=== PATIENT | male | born 1995 | race African-American/Black ===

== ENCOUNTER 2023-12-17 13:58 | Emergency (ER) | payer MEDICAID ==
[2023-12-17 15:34] VITALS: BP 100/64; PULSE 70; RESP 18; TEMP 97.9; O2SAT 98
[2023-12-17] MEDS ORDERED: LIDO5DIS21 TOP (16:12)
[2023-12-17] MEDS ORDERED: GUAI200T6 PO (16:12)
[2023-12-17] MEDS ORDERED: PRED20TA2 PO (16:12)
[2023-12-17] MEDS ORDERED: PROM1SOL4 PO (16:12)
[2023-12-17] MEDS ORDERED: AZIT-43 PO (16:12)
[2023-12-17] MEDS ORDERED: BECL40AE11 IN (16:12)
[2023-12-17] MEDS ORDERED: METH-1181 PO (16:12)
[2023-12-17] MEDS ORDERED: BENZ100C97 PO (16:12)
[2023-12-17] MEDS: KETOROLAC TROMETH 30 MG/ML 1ML VIAL IM ONE (16:32)
== END 2023-12-17 16:39 | disposition home or self-care (01) ==
LOC: ER 13:58
DX: J98.01 Acute bronchospasm (principal); M54.9 Dorsalgia, unspecified
CPT/HCPCS: 71046; 96372; 99283; J1885

== ENCOUNTER 2024-03-14 07:40 | Emergency (ER) | payer MEDICAID ==
[~2024-03-14] VITALS: Ht 167.6 cm; Wt 81.8 kg
[~2024-03-14 07:40] MED LIST: AZIT-43 PO; BECL40AE11 IN; BENZ100C97 PO; GUAI200T6 PO; LIDO5DIS21 TOP; METH-1181 PO; PRED20TA2 PO; PROM1SOL4 PO
--- NOTE | 2024-03-14 07:55 | ED.PDOC ---
History of Present Illness HPI Comments 28-year-old male with PMHx COPD, Asthma presents with a chief complaint of SOB x 1 week with associated cough and chest discomfort. Patient states that his pain is worse upon breathing deeply. Patient reports that he has sick contacts at home and has been out of his albuterol inhaler. Patient reports that his cough is productive with brown-yellowish sputum. EMS reports that all vital signs were stable, 100% on room air, no supplemental oxygen needed. No other symptoms or modifying factors present at this time. Chief Complaint: Flu like Time Seen by MD: 07:42 Reviewed Notes: Medications, Allergies Allergies: Coded Allergies: NO KNOWN ALLERGIES (Unverified , 12/17/23) Home Meds Active Scripts Guaifenesin (Guaifenesin) 200 Mg Tab, 200 MG PO BID for 10 Days, #20 TAB 0 Refills Prov:STU THOMAS NP 12/17/23 Lidocaine (LIDODERM 5% TOPICAL PATCH) 1 Patch Ph, 1 PATCH TOP DAILY for 30 Days, #30 PATCH 0 Refills Prov:STU THOMAS NP 12/17/23 Methocarbamol (Methocarbamol) 500 Mg Tab, 500 MG PO Q6HP PRN for 14 Days, #56 TAB 0 Refills Prov:STU THOMAS NP 12/17/23 Benzonatate (Benzonatate) 100 Mg Cap, 1 CAP PO TID for 10 Days, #30 CAP 0 Refi lls Prov:STU THOMAS NP 12/17/23 Prednisone (Prednisone) 20 Mg Tab, 40 MG PO DAILY for 5 Days, #10 TAB 0 Refills Prov:STU THOMAS NP 12/17/23 Beclomethasone Dipropionate (Qvar Redihaler) 40 Mcg/Act Aer, 40 MCG IN DAILY for 30 Days, #1 AER 0 Refills Prov:STU THOMAS NP 12/17/23 Azithromycin (Azithromycin) 250 Mg Tab, 250 MG PO DAILY MDD 500 for 5 Days, #6 TAB 0 Refills 2 TABLETS ORALLY ON DAY ONE, THEN 1 TABLET ORALLY DAILY FOR 4 DAYS Prov:STU THOMAS NP 12/17/23 Promethazine-Dm (Promethazine Dm 6.25-15 mg/5Ml) 1 Gloria Gloria, 5 ML PO TIDPRN PRN for 10 Days, #150 ML 0 Refills Prov:STU THOMAS NICA 12/17/23 Information Source: Patient, Emergency Med Personnel Mode of Arrival: EMS Severity: Moderate Timing: Days Duration: Since onset Prehospital treatment: None Past Medical History PAST MEDICAL HISTORY: Asthma, COPD Surgical History: Denies all surgeries Family History Family History: Reviewed,noncontributory to illness Social History Smoker: Non-Smoker Alcohol: Denies ETOH Use Drugs: Denies Drug Use Constitutional: denies: chills, diaphoresis, fatigue, fever, malaise, sweats, weakness, others EENTM: denies: blurred vision, double vision, ear bleeding, ear discharge, ear drainage, ear pain, ear ringing, eye pain, eye redness, hearing loss, mouth pain, mouth swelling, nasal discharge, nose bleeding, nose congestion, nose pain, photophobia, tearing, throat pain, throat swelling, voice changes, others Respiratory: reports: cough, shortness of breath; denies: hemoptysis, orthopnea, SOB at rest, SOB with excertion, stridor, wheezing, others Cardiovascular: reports: chest pain; denies: dizzy spells, diaphoresis, Dyspnea on exertion, edema, irregular heart beat, left arm pain, lightheadedness, palpitations, PND, syncope, others Gastrointestinal: denies: abdomen distended, abdominal pain, blood streaked bowels, constipated, diarrhea, dysphagia, difficulty swallowing, hematemesis, melena, nausea, poor appetite, poor fluid intake, rectal bleeding, rectal pain, vomiting, others Genitourinary: denies: burning, dysuria, flank pain, frequency, hematuria, incontinence, penile discharge, penile sore, pain, testicle pain, testicle swelling, urgency, others Neurological: denies: dizziness, fainting, headache, left sided numbness, left sided weakness, numbness, paresthesia, pre-existing deficit, right sided numbness, right sided weakness, seizure, speech problems, tingling, tremors, weakness, others Musculoskeletal: denies: back pain, gout, joint pain, joint swelling, muscle pain, muscle stiffness, neck pain, others Integumetry: denies: bruises, change in color, change in hair/nails, dryness, laceration, lesions, lumps, rash, wounds, others Allergic/Immunocompromised: denies: Difficulty Healing, Frequent Infections, Hives, Itching, others Hematologic/Lymphatic: denies: anemia, blood clots, easy bleeding, easy bruising, swollen glands, others Endocrine: denies: excessive hunger, excessive sweating, excessive thirst, excessive urination, flushing, intolerance to cold, intolerance to heat, unexplained weight gain, unexplained weight loss, others Psychiatric: denies: anxiety, bipolar disorder, depression, hopeless, panic disorder, schizophrenia, sleepless, suicidal, others All Other Systems: Reviewed and Negative Physical Exam General Appearance: Moderate Distress, Obese HEENT: Normal ENT Inspection, Pharynx Normal, TMs Normal Neck: Full Range of Motion, Non-Tender, Normal, Normal Inspection Respiratory: Chest Non-Tender, Lungs Clear, No Accessory Muscle Use, No Respiratory Distress, Normal Breath Sounds Cardiovascular: No Edema, No JVD, No Murmur, No Gallop, Normal Peripheral Pulses, Regular Rate/Rhythm Breast Exam: Deferred Gastrointestinal: No Organomegaly, Non Tender, No Pulsatile Mass, Normal Bowel Sounds, Soft Genitalia: Deferred Pelvic: Deferred Rectal: Deferred Extremities: No calf tenderness, Normal capillary refill, Normal inspection, Normal range of motion, Non-tender, No pedal edema Musculoskeletal : Apperance: Normal Neurologic: Alert, county program technician II-XII nml as Tested, No Motor Deficits, Normal Affect, Normal Mood, No Sensory Deficits Cerebellar Function: Normal Reflexes: Normal Skin: Dry, Normal Color, Warm Lymphatic: No Adenopathy Was a procedure done? Was a procedure done?: No EKG EKG : Pulse Rate (adult): 80 [place]: Normal Cardiac Rhythm: NSR Block: None Hypertrophy: None ST: Normal Differential Dx Considerations may include: Influenza, COVID, pneumonia, viral pneumonia, bronchitis, URI, COPD exacerbation X-Ray, Labs, Meds, VS Vital Signs Date Time Temp Pulse Resp B/P (MAP) Pulse Ox O2 Delivery O2 Flow Rate FiO2 03/14/24 08:11 18 98 Room Air* 0 21 03/14/24 07:55 80 03/14/24 07:49 80 03/14/24 07:45 Room Air* 0 21 03/14/24 07:42 98.3 80 18 116/75 (89) 100 Current Medications Medications (Trade) Dose Ordered Sig/Claribel Route Start Time Stop Time Status Last Admin Albuterol (Ventolin Medneb) 2.5 mg ONCE ONCE NEB 03/14/24 08:00 03/14/24 08:01 DC 03/14/24 08:11 PATIENT: RIMMA ZAFAR: [id number]: [id number] : 1995 LOC: ER ROOM / BED: / AGE / SEX: 28 / M ADM STATUS: REG ER SERVICE 0750 ORDERING PHYSICIAN: AMANDA TIERNEY MD PROCEDURE(s): CXR2 - CHEST TWO VIEWS ROUTINE REASON: sob ORDER NUMBER(s): [id number], ACCESSION NUMBER(s): [id number] CHEST RADIOGRAPH Indication: sob Technique: Frontal and lateral view of the chest was obtained Comparison: XY CHEST TWO VIEWS ROUTINE on DOS: 12/17/23 FINDINGS: Lines and Tubes: None Lungs: Mild increased interstitial prominence. Pleura: No effusion. No pneumothorax. Cardiomediastinal contours: Unremarkable Bones: Unremarkable IMPRESSION: Possible viral pneumonitis ATED BY: SHASHI OLEA MD DICTATED DATE/TIME: 03/14/24854 SIGNED BY: SHASHI OLEA MD SIGNED DATE/TIME: 03/14/24854 28-year-old male presents here with difficulty breathing. I have given albuterol in the ER and clinically he is feeling much better. Patient was saturating well. Chest x-ray is consistent with possible viral pneumonitis. Advised the patient of this. I have discharged the patient with albuterol inhaler. EKG has been done which is unremarkable. Advised patient to follow up with PCP in 2-3 days and return to the ER if symptoms worsen or persist. Time of 1ST Reevaluation: 08:12 Reevaluation 1ST: Unchanged Patient Education/Counseling: Diagnosis, Treatment, Prognosis Family Education/Counseling: Diagnosis, Treatment, Prognosis Departure 1 Departure Time of Disposition: 09:42 Impression: Primary Impression: Viral pneumonitis Additional Impression: SOB (shortness of breath) Disposition: 01 HOME / SELF CARE / HOMELESS Condition: Fair Written Prescriptions Follow up with the primary care physician in 2-3 days. Return to the ER if symptoms worsen or persist. e-Prescriptions Albuterol Sulfate (VENTOLIN MDI) 90 Mcg Ih 90 MCG IN Q4HPRN PRN, #1 INH Prov: AMANDA TIERNEY MD 03/14/24 Discharged With: Self Critical Care Note Critical Care Time?: No Stability Stability form required: No Heart Score Heart Score: Heart Score Response (Comments) Value History Slightly Suspicious 0 EKG Normal 0 Age <45 0 Risk Factors 1 or 2 risk factors 1 Troponin N/A 0 Total 1 I personally scribed for AMANDA TIERNEY MD ([email or web address]) on 03/14/24 at 07:55. Electronically submitted by Darrion Murdock ([email or web address]). I personally scribed for AMANDA TIERNEY MD ([email or web address]) on 03/14/24 at 09:01. Electronically submitted by Darrion Murdock ([email or web address]). AMANDA TIERNEY MD Mar 14, 2024 07:55
--- NOTE | 2024-03-14 08:10 | ECG ---
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
[2024-03-14] MEDS: ALBUTEROL SULF 2.5 MG/0.5ML(0.5%) NEB SOLN NEB ONE (08:11)
--- NOTE | 2024-03-14 09:00 | DVH ---
CHEST RADIOGRAPH Indication: sob Technique: Frontal and lateral view of the chest was obtained Comparison: XY CHEST TWO VIEWS ROUTINE on DOS: 12/17/23 FINDINGS: Lines and Tubes: None Lungs: Mild increased interstitial prominence. Pleura: No effusion. No pneumothorax. Cardiomediastinal contours: Unremarkable Bones: Unremarkable IMPRESSION: Possible viral pneumonitis
[2024-03-14] MEDS ORDERED: ALBUAER3 IN (09:03)
[2024-03-14 09:23] VITALS: BP 109/79; PULSE 99; RESP 16; TEMP 98.2; O2SAT 98
== END 2024-03-14 09:23 | disposition home or self-care (01) ==
LOC: ER 07:40 → EDUNIT# 07:40 → EDBD 07:40 → ER 09:23
DX: Z79.899 Other long term (current) drug therapy (principal); R06.02 Shortness of breath; B97.89 Other viral agents as the cause of diseases classified elsewhere; J44.89 Other specified chronic obstructive pulmonary disease; J45.909 Unspecified asthma, uncomplicated
CPT/HCPCS: 71046; 93005; 94640

== ENCOUNTER 2024-03-24 01:07 | Emergency (ER) | payer MEDICAID ==
[~2024-03-24] VITALS: Ht 165.1 cm; Wt 78.4 kg
[~2024-03-24 01:07] MED LIST changes: +ALBUAER3 IN
--- NOTE | 2024-03-24 01:25 | ED.PDOC ---
SOB-HPI HPI Comments HPI: Poor Historian. 28-year-old male presents to emergency department for persistent nonspecific dry cough. He said every time he coughs he gets ribcage pain and headache. Patient went to an outside facility and was prescribed medication for his history of asthma/COPD. Patient came again six days ago to this facility he says and was prescribed additional medications. Patient states compliance with these medications. Patient states he still has this persistent cough. Patient has been released from shelter about three months ago. Patient is already on an inhaler and acromion prednisone smells like marijuana Vitals: temperature of 98.1F, pulse rate of 90, respiratory rate of 18, bloood pressure of 118/64, SpO2 of 96%RA PMHx: anxiety and depression w/o medication use, assthma, bronchitis, COPD PSHx: denies Social Hx: marijuana and nicotine vape use REVIEW OF SYSTEMS: CONSTITUTIONAL: Denies acute: fever, diaphoresis, chills, generalized weakness. HEAD: Denies acute: headache, photophobia Eyes: Denies acute: Double vision, vision loss, eye pain, eye discharge. EARS: Denies acute: tinnitus, hearing loss, ear discharge, ear pain, THROAT: Denies acute: sore throat, swelling, difficulty swallowing , pain with swallowing, change in voice. NECK: Denies acute: neck pain, neck swelling, stiff neck. HEART: Denies acute : chest pain, palpitations, LUNGS: Denies acute: wheezing, hemoptysis ABDOMEN: Denies acute: abdominal pain, Nausea, Vomiting, diarrhea, melena , hematemesis, hematochezia SKIN: Denies acute: rash, redness, lesions, itchiness. EXTREMITIES: Denies acute: calf pain, numbness, tingling, weakness, denies pain in extremity. Denies acute: Low back pain. Neuro: Denies acute: focal neurological deficit, motor or sensory focal neurological deficit, tremors, seizure like activity, confusion, dizziness, change in mental status, loss of bowel or bladder function, cauda equina like symptoms. : Denies acute: dysuria, hematuria, flank pain, increase in urinary frequency. PSYCH: Denies acute: hallucination, suicidal ideation, homicidal ideation. PHYSICAL EXAM: General: no acute distress, awake and alert. Head: normocephalic, atraumatic. Neck: supple, trachea is midline, no swelling. Throat: Normal phonation. Eyes:, no erythema, no purulent discharge, no proptosis, no icterus. Heart: regular rate, regular rhythm, no significant murmur appreciated. Lungs: no apparent respiratory distress, Able to speak in full sentences. Slight bilateral wheezing, no rhonchi, no crackles. No stridors Abdomen: non tender to palpation, non distended, soft, no guarding, no rebound, + bowel sounds. Neuro: Awake, Alert, oriented to name, self, situation, follows commands GCS=15. Speech is normal. Skin: no petechia, no purpura, no cyanosis, non-pale, not jaundice. Lower extremities: --no - Pitting edema no deformity, no focal swelling, no calf TTP. Makes eye contact. moves all four extremities. Face: no apparent facial droop. Ambulating in the ED independently. No nuchal rigidity, Kernig's sign, Brudzinski's sign, no meningeal signs. Chief Complaint: Shortness of Breath Time Seen by MD: 01:15 Reviewed notes: Nurses Notes, Medications, Allergies Information Source: Patient Past Medical History PAST MEDICAL HISTORY: Anxiety (no medication use ), Asthma, COPD, Depression (no medication use ) Past Medical History (Other): bronchitis Surgical History: Denies all surgeries Family History Family History: Reviewed,noncontributory to illness Social History Smoker: Other (nicotine vape use) Alcohol: Denies ETOH Use Drugs: Marijuana Lives In: Home EKG EKG : Pulse Rate (adult): 89 [place]: Normal Cardiac Rhythm: NSR Block: None Hypertrophy: None ST: Normal Was a procedure done? Was a procedure done?: No Differential Dx Differential Diagnosis: Other (DDx include ACS, unstable angina, anxiety, PE, pneumothroax, neoplasm, cardiac ischemia, COPD, asthma, CHF, pleural effusion, tobacco abuse, pneumonia, hypoxia, hypercapnia, anemia., infection/sepsis., pulmonary edema. Asthma, Cardiac tamponade, infection.) X-Ray, Labs, Meds, VS Vital Signs Date Time Temp Pulse Resp B/P (MAP) Pulse Ox O2 Delivery O2 Flow Rate FiO2 03/24/24 03:00 18 97 Room Air* 0 21 03/24/24 01:25 89 03/24/24 01:17 89 03/24/24 01:13 18 96 Room Air* 0 21 03/24/24 01:12 98.1 90 18 118/64 (82) 96 Lab Test 03/24/24 01:52 03/24/24 01:25 Range/Units White Blood Count 12.7 H 4.4-10.8 10^3/uL Red Blood Count 4.26 L 4.5-5.90 10^6/uL Hemoglobin 13.0 L 13.5-17.5 g/dL Hematocrit 38.7 L 41.0-53.0 % Mean Corpuscular Volume 90.9 80.0-100.0 fL Mean Corpuscular Hemoglobin 30.5 28.0-32.0 pg Mean Corpuscular Hemoglobin Concent 33.5 32.0-36.0 g/dL Red Cell Distribution Width 12.8 11.8-14.3 % Platelet Count 352 140-450 10^3/uL Mean Platelet Volume 7.4 6.9-10.8 fL Neutrophils (%) (Auto) 67.7 37.0-80.0 % Lymphocytes (%) (Auto) 24.2 10.0-50.0 % Monocytes (%) (Auto) 6.7 0.0-12.0 % Eosinophils (%) (Auto) 0.8 0.0-7.0 % Basophils (%) (Auto) 0.6 0.0-2.0 % Neutrophils # (Auto) 8.6 1.6-8.6 10 ^3/uL Lymphocytes # (Auto) 3.1 0.4-5.4 10 ^3/uL Monocytes # (Auto) 0.8 0-1.3 10 ^3/uL Eosinophils # (Auto) 0.1 0-0.8 10 ^3/uL Basophils # (Auto) 0.1 0-0.2 10 ^3/uL Nucleated Red Blood Cells 0.1 % Sodium Level 140 136-145 mmol/L Potassium Level 3.1 L 3.5-5.1 mmol/L Chloride Level 106 98-107 mmol/L Carbon Dioxide Level 25 20-31 mmol/L Anion Gap 9 5-15 Blood Urea Nitrogen 11 9-23 mg/dL Creatinine 1.06 0.700-1.30 mg/dL Glomerular Filtration Rate Calc 99 >90 mL/min BUN/Creatinine Ratio 10.4 10.0-20.0 Serum Glucose 90 74-106 mg/dL Calcium Level 10.2 8.7-10.4 mg/dL Total Bilirubin 0.3 0.2-1.0 mg/dL Aspartate Amino Transferase (AST) 35 13-40 U/L Alanine Aminotransferase (ALT) 25 7-40 U/L Alkaline Phosphatase 83 46-116 U/L Troponin I High Sensitivity 35 </=54 ng/L B-Type Natriuretic Peptide 25.70 0-100 pg/mL Total Protein 7.5 5.7-8.2 g/dL Albumin 4.7 3.2-4.8 g/dL Influenza Type A Antigen Negative Negative Influenza Type B Antigen Negative Negative SARS-CoV-2 Antigen (Rapid) Negative NEGATIVE Current Medications Medications (Trade) Dose Ordered Sig/Claribel Route Start Time Stop Time Status Last Admin Albuterol (Ventolin Medneb) 2.5 mg ONCE ONCE NEB 03/24/24 01:30 03/24/24 01:31 DC 03/24/24 01:30 Ipratropium [place] (Atrovent Medneb) 1 mg ONCE ONCE NEB 03/24/24 01:30 03/24/24 01:31 DC 03/24/24 01:30 [place] [id number] Ph: [phone] DIAGNOSTIC IMAGING Diagnostic Imaging Report : [id number] Signed PATIENT: DANNI ZAFAR ACCT: [id number] UNIT: [id number] : 1995 LOC: ER ROOM / BED: / AGE / SEX: 28 / M ADM STATUS: REG ER SERVICE 0126 ORDERING PHYSICIAN: MARSHA ANDRADE DO PROCEDURE(s): CXRP - CHEST PORTABLE REASON: sob ORDER NUMBER(s): [id number], ACCESSION NUMBER(s): [id number] CHEST RADIOGRAPH Indication: sob Technique: Single frontal view of the chest was obtained COMPARISON: None FINDINGS: Lines and Tubes: None Lungs: Clear Pleura: No effusion. No pneumothorax. Cardiomediastinal contours: Unremarkable Bones: Unremarkable IMPRESSION: 1. Clear lungs. ATED BY: JANESSA ELY MD DICTATED DATE/TIME: 03/24/24302 SIGNED BY: JANESSA ELY MD SIGNED DATE/TIME: 03/24/24302 CC: Time of 1ST Reevaluation: 01:15 Reevaluation 1ST: Unchanged Time of 2ND Reevaluation: 03:16 Reevaluation 2ND: Resolved Patient Education/Counseling: Diagnosis, Treatment Family Education/Counseling: No Family Present Comments Patient presented with the above HPI. Respiratory workup was initiated. patient was found with the above mentioned diagnosis. the following medications were ordered: Please see Dr. Andrade ordered list. the following tests were ordered: CMP, CBC, UA, EKG Patient ED course and VS have been stabilized. Patient has been reassessed in the ED and remained in a stable condition. Pertinent incidental findings were discussed with the patient and/or family. Patient/family voices understanding and is agreeable with plan. Patient has been observed in the ED adequate length of time to insure improvement/stability. Escalation of care considered: Consideration of escalation to observation or admission Patient was DISCHARGED home in a stable condition. All the reports of any imaging studies that were ordered by myself were reviewed by myself. Departure 1 Departure Time of Disposition: :15 Impression: Primary Impression: Asthma exacerbation Disposition: 01 HOME / SELF CARE / HOMELESS Condition: Stable Additional Instructions: Additional discharge instructions: You MUST follow-up with your primary care/family doctor in 1 to 2 days. If you are unable to see your primary care/family doctor, please return to our emergency room for re-assessment and re-evaluation in 1 to 2 days. Return to the emergency room here in our facility or to the nearest ER [facility] if your symptoms change or worsen. CONSULTATIONS: you MUST Follow-up for consultation as soon as possible with: -pulmonology in 1-2 days. Please call for appointment. You MUST call the consultants office yourself to make an appointment. You may need to arrange that through your insurance and/or your primary/family doctor. If you are unable to see the senior treasury consultant in 1 to 2 days, you must return to our emergency room (or any other ER of your choice) for re-assessment and re-evaluation. Adequate fluid hydration. Avoid any vaping or tobacco use or drugs. Continue using your steroids and inhaler as prescribed. Discharged With: Self Critical Care Note Critical Care Time?: No Heart Score Heart Score: Heart Score Response (Comments) Value History Slightly Suspicious 0 EKG Normal 0 Age <45 0 Risk Factors No known risk factors 0 Troponin Normal limit 0 Total 0 I personally scribed for MARSHA ANDRADE DO ([email or web address]) on 03/24/24 at 01:25. Electronically submitted by Frandy Kirkland ([email or web address]). I personally scribed for MARSHA ANDRADE DO ([email or web address]) on 03/24/24 at 01:29. Electronically submitted by Frandy Kirkland ([email or web address]). I personally scribed for MARSHA ANDRADE DO ([email or web address]) on 03/24/24 at 03:19. Electronically submitted by Frandy Kirkland ([email or web address]). I personally scribed for MARSHA ANDRADE DO ([email or web address]) on 03/24/24 at 03:20. Electronically submitted by Frandy Kirkland ([email or web address]). MARSHA ANDRADE DO Mar 24, 2024 01:25
[2024-03-24] MEDS ORDERED: methylPREDNISolone SOD SUCC 125 MG/2 ML VL IV ONE (01:30)
[2024-03-24] MEDS: IPRATROPIUM BROM 0.5 MG/2.5ML INH SOL NEB ONE ×2 (01:30→07:22)
[2024-03-24] MEDS: ALBUTEROL SULF 2.5 MG/0.5ML(0.5%) NEB SOLN NEB ONE ×2 (01:30→07:22)
[2024-03-24 02:05] LABS: COVID19 ANTIGEN SOFIA FIA NEGATIVE (NEGATIVE); Rapid Influenza A Negative (Negative); Rapid Influenza B Negative (Negative)
[2024-03-24 02:08] LABS: Basophils # (auto) 0.1 10 ^3/uL (0-0.2); Basophils % (auto) 0.6 % (0.0-2.0); Eosinophils # (auto) 0.1 10 ^3/uL (0-0.8); Eosinophils % (auto) 0.8 % (0.0-7.0); Hematocrit 38.7 % (41.0-53.0); Lymphocytes # (auto) 3.1 10 ^3/uL (0.4-5.4); Lymphocytes % (auto) 24.2 % (10.0-50.0); Mean Corpuscular Hemoglobin 30.5 pg (28.0-32.0); Mean Corpuscular Hgb Conc. 33.5 g/dL (32.0-36.0); Mean Corpuscular Volume 90.9 fL (80.0-100.0); Monocytes # (auto) 0.8 10 ^3/uL (0-1.3); Monocytes % (auto) 6.7 % (0.0-12.0); Neutrophils # (auto) 8.6 10 ^3/uL (1.6-8.6); Neutrophils % (auto) 67.7 % (37.0-80.0); Nucleated Red Blood Cells % 0.1 %; Platelet Count (auto) 352 10^3/uL (140-450); Red Blood Cells 4.26 10^6/uL (4.5-5.90); Red Cell Distribution Width 12.8 % (11.8-14.3); White Blood Cell 12.7 10^3/uL (4.4-10.8)
[2024-03-24 02:20] LABS: Alanine Aminotransferase 25 U/L (7-40); Alkaline Phosphatase 83 U/L (46-116); Anion Gap 9 (5-15); Aspartate Aminotransferase 35 U/L (13-40); BUN/Creatinine Ratio 10.4 (10.0-20.0); Blood Urea Nitrogen 11 mg/dL (9-23); Calcium 10.2 mg/dL (8.7-10.4); Carbon Dioxide 25 mmol/L (20-31); Chloride 106 mmol/L (98-107); Glucose 90 mg/dL (74-106); Sodium 140 mmol/L (136-145)
[2024-03-24 02:21] LABS: Albumin 4.7 g/dL (3.2-4.8); Bilirubin, Total 0.3 mg/dL (0.2-1.0); Total Protein 7.5 g/dL (5.7-8.2)
[2024-03-24 02:22] LABS: Potassium 3.1 mmol/L (3.5-5.1)
--- NOTE | 2024-03-24 03:05 | DVH ---
CHEST RADIOGRAPH Indication: sob Technique: Single frontal view of the chest was obtained COMPARISON: None FINDINGS: Lines and Tubes: None Lungs: Clear Pleura: No effusion. No pneumothorax. Cardiomediastinal contours: Unremarkable Bones: Unremarkable IMPRESSION: 1. Clear lungs.
--- NOTE | 2024-03-24 03:07 | ECG ---
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
[2024-03-24 07:30] VITALS: BP 109/66; PULSE 90; RESP 18; O2SAT 100
[2024-03-24] MEDS: methylPREDNISolone SOD SUCC 125 MG/2 ML VL IM ONE (07:34)
[2024-03-24] MEDS: POTASSIUM EFFERVESENT TAB 25 MEQ PO ONE (07:35)
[2024-03-24 07:36] VITALS: TEMP 97.8
[2024-03-24] MEDS: ACETAMINOPHEN 325 MG TAB PO ONE (07:36)
[2024-03-24] MEDS ORDERED: ALBUAER3 IN (08:31)
== END 2024-03-24 07:50 | disposition home or self-care (01) ==
LOC: ER 01:07
DX: J45.901 Unspecified asthma with (acute) exacerbation (principal); F12.90 Cannabis use, unspecified, uncomplicated; F17.290 Nicotine dependence, other tobacco product, uncomplicated; Z20.822 Contact with and (suspected) exposure to COVID-19
CPT/HCPCS: 36415; 71045; 80053; 83880; 84484; 85025; 87426; 87804; 93005; 94640; 96372; 99285; J2919

== ENCOUNTER 2024-03-24 08:02 | Emergency (ER) | payer SELFPAY ==
[~2024-03-24] VITALS: Ht 165.1 cm; Wt 79.5 kg
--- NOTE | 2024-03-24 08:16 | ED.PDOC ---
History of Present Illness HPI Comments 28 y/o M, with PMHX of anxiety, depression, and asthma presents to the ED for CC of prescription refill. Patient states, that he was seen at [facility] yesterday night (03/23/24) for c/o shortness of breath; patient comments on never receiving his prescription for an inhaler. Patient denies any new or current symptoms. Time Seen by MD: 08:00 Reviewed Notes: Nurses Notes, Medications, Allergies Allergies: Coded Allergies: NO KNOWN ALLERGIES (Unverified , 12/17/23) Home Meds Active Scripts Albuterol Sulfate (VENTOLIN MDI) 90 Mcg Ih, 90 MCG IN Q4HPRN PRN, #1 INH Prov:AMANDA TIERNEY MD 03/14/24 Guaifenesin (Guaifenesin) 200 Mg Tab, 200 MG PO BID for 10 Days, #20 TAB 0 Refills Prov:STU THOMAS NP 12/17/23 Lidocaine (LIDODERM 5% TOPICAL PATCH) 1 Patch Ph, 1 PATCH TOP DAILY for 30 Days, #30 PATCH 0 Refills Prov:STU THOMAS NP 12/17/23 Methocarbamol (Methocarbamol) 500 Mg Tab, 500 MG PO Q6HP PRN for 14 Days, #56 TAB 0 Refills Prov:STU THOMAS NP 12/17/23 Benzonatate (Benzonatate) 100 Mg Cap, 1 CAP PO TID for 10 Days, #30 CAP 0 Refills Prov:STU THOMAS NP 12/17/23 Prednisone (Prednisone) 20 Mg Tab, 40 MG PO DAILY for 5 Days, #10 TAB 0 Refills Prov:STU THOMAS NP 12/17/23 Beclomethasone Dipropionate (Qvar Redihaler) 40 Mcg/Act Aer, 40 MCG IN DAILY for 30 Days, #1 AER 0 Refills Prov:STU THOMAS NP 12/17/23 Azithromycin (Azithromycin) 250 Mg Tab, 250 MG PO DAILY MDD 500 for 5 Days, #6 TAB 0 Refills 2 TABLETS ORALLY ON DAY ONE, THEN 1 TABLET ORALLY DAILY FOR 4 DAYS Prov:STU THOMAS NP 12/17/23 Promethazine-Dm (Promethazine Dm 6.25-15 mg/5Ml) 1 Gloria Gloria, 5 ML PO TIDPRN PRN for 10 Days, #150 ML 0 Refills Prov:STU THOMAS NICA 12/17/23 Information Source: Patient Mode of Arrival: Ambulatory Severity: Mild Timing: Minutes Duration: Since onset Past Medical History PAST MEDICAL HISTORY: Anxiety, Asthma, COPD, Depression Surgical History: Denies all surgeries Family History Family History: Reviewed,noncontributory to illness Social History Smoker: Other Alcohol: Denies ETOH Use Drugs: Marijuana Lives In: Home Constitutional: denies: chills, diaphoresis, fatigue, fever, malaise, sweats, weakness, others EENTM: denies: blurred vision, double vision, ear bleeding, ear discharge, ear drainage, ear pain, ear ringing, eye pain, eye redness, hearing loss, mouth pain, mouth swelling, nasal discharge, nose bleeding, nose congestion, nose pain, photophobia, tearing, throat pain, throat swelling, voice changes, others Respiratory: denies: cough, hemoptysis, orthopnea, SOB at rest, shortness of breath, SOB with excertion, stridor, wheezing, others Cardiovascular: denies: chest pain, dizzy spells, diaphoresis, Dyspnea on exertion, edema, irregular heart beat, left arm pain, lightheadedness, palpitations, PND, syncope, others Gastrointestinal: denies: abdomen distended, abdominal pain, blood streaked bowels, constipated, diarrhea, dysphagia, difficulty swallowing, hematemesis, melena, nausea, poor appetite, poor fluid intake, rectal bleeding, rectal pain, vomiting, others Genitourinary: denies: burning, dysuria, flank pain, frequency, hematuria, incontinence, penile discharge, penile sore, pain, testicle pain, testicle swelling, urgency, others Neurological: denies: dizziness, fainting, headache, left sided numbness, left sided weakness, numbness, paresthesia, pre-existing deficit, right sided numbness, right sided weakness, seizure, speech problems, tingling, tremors, wea kness, others Musculoskeletal: denies: back pain, gout, joint pain, joint swelling, muscle pain, muscle stiffness, neck pain, others Integumetry: denies: bruises, change in color, change in hair/nails, dryness, l aceration, lesions, lumps, rash, wounds, others Allergic/Immunocompromised: denies: Difficulty Healing, Frequent Infections, Hives, Itching, others Hematologic/Lymphatic: denies: anemia, blood clots, easy bleeding, easy bruising, swollen glands, others Endocrine: denies: excessive hunger, excessive sweating, excessive thirst, excessive urination, flushing, intolerance to cold, intolerance to heat, unexplained weight gain, unexplained weight loss, others Psychiatric: denies: anxiety, bipolar disorder, depression, hopeless, panic disorder, schizophrenia, sleepless, suicidal, others All Other Systems: Reviewed and Negative Physical Exam General Appearance: Mild Distress HEENT: Normal ENT Inspection, Pharynx Normal, TMs Normal Neck: Full Range of Motion, Non-Tender, Normal, Normal Inspection Respiratory: Chest Non-Tender, Lungs Clear, No Accessory Muscle Use, No Respiratory Distress, Normal Breath Sounds Cardiovascular: No Edema, No JVD, No Murmur, No Gallop, Normal Peripheral Pulses, Regular Rate/Rhythm Breast Exam: Deferred Gastrointestinal: No Organomegaly, Non Tender, No Pulsatile Mass, Normal Bowel Sounds, Soft Genitalia: Deferred Pelvic: Deferred Rectal: Deferred Extremities: No calf tenderness, Normal capillary refill, Normal inspection, Normal range of motion, Non-tender, No pedal edema Musculoskeletal : Apperance: Normal Neurologic: Alert, glove cutter II-XII nml as Tested, No Motor Deficits, Normal Affect, Normal Mood, No Sensory Deficits Cerebellar Function: Normal Reflexes: Normal Skin: Dry, Normal Color, Warm Peripheral Pulses: 3+ Radial (R), 3+ Radial (L) Lymphatic: No Adenopathy Was a procedure done? Was a procedure done?: No Differential Dx Considerations may include: Anxiety Asthma X-Ray, Labs, Meds, VS Vital Signs Date Time Temp Pulse Resp B/P (MAP) Pulse Ox O2 Delivery O2 Flow Rate FiO2 03/24/24 08:19 18 99 Room Air* 0 21 03/24/24 08:10 97.9 74 18 111/79 (90) 99 Patient alert. Came in for inhaler. Vitals stable. Answering all questions. Saturation pristine on room air. On examination no sign of distress. Was given prescription of inhaler. Reviewed his previous visit. Explained to the patient. Was told to follow up with his primary care physician. Was told to come back if there is any problem. Time of 1ST Reevaluation: 08:30 Reevaluation 1ST: Improved Patient Education/Counseling: Diagnosis, Treatment Family Education/Counseling: No Family Present Departure 1 Departure Time of Disposition: 08:27 Impression: Primary Impression: Acute asthma Additional Impression: Cough Qualified Codes: R05.9 - Cough, unspecified Disposition: 01 HOME / SELF CARE / HOMELESS Condition: Good e-Prescriptions Albuterol Sulfate (VENTOLIN MDI) 90 Mcg Ih 90 MCG IN Q6HP PRN for 5 Days, #1 MCG Prov: FAYE TORRES MD 03/24/24 Discharged With: Self Critical Care Note Critical Care Time?: No Stability Stability form required: No Heart Score Heart Score: Heart Score Response (Comments) Value History N/A 0 EKG N/A 0 Age N/A 0 Risk Factors N/A 0 Troponin N/A 0 Total 0 I personally scribed for FAYE TORRES MD ([email or web address]) on 03/24/24 at 08:16. Electronically submitted by Liliana Mc ([email or web address]). FAYE TORRES MD Mar 24, 2024 08:16
[2024-03-24] MEDS ORDERED: ALBUAER3 IN (08:31)
[2024-03-24 08:44] VITALS: BP 109/52; PULSE 54; RESP 15; O2SAT 100
== END 2024-03-24 08:47 | disposition home or self-care (01) ==
LOC: ER 08:02
DX: J45.909 Unspecified asthma, uncomplicated (principal); F17.200 Nicotine dependence, unspecified, uncomplicated; F41.9 Anxiety disorder, unspecified; J44.9 Chronic obstructive pulmonary disease, unspecified; Z76.0 Encounter for issue of repeat prescription